=== PATIENT | male | born 1950 | race Caucasian/White ===

== ENCOUNTER 2016-10-12 08:49 | Outpatient (CLI) | payer MEDICARE, MEDICAID ==
[2016-10-12 09:39] LABS: EOSINOPHILS # (AUTO) 0.2 10^3/uL (0.0-0.7); EOSINOPHILS % (AUTO) 4.6 %; HCT - HEMATOCRIT 38.2 % (42.0-52.0); HGB - HEMOGLOBIN 13.3 g/dL (14.0-18.0); MEAN CORPUSCULAR HEMOGLOBIN 30.9 pg (27.0-31.0); MEAN CORPUSCULAR HGB CONC 34.8 g/dL (32.0-36.0); MEAN CORPUSCULAR VOLUME 88.7 fL (80.0-94.0); MEAN PLATELET VOLUME 9.4 fL (7.4-11.4); MONOCYTES # (AUTO) 0.5 10^3/uL (0.0-1.0); MONOCYTES % (AUTO) 13.1 %; NEUTROPHILS % (AUTO) 53.3 %; RED CELL DISTRIBUTION WIDTH 14.1 % (12.0-15.0); UNCORRECTED WHITE BLOOD COUNT 3.7 x10^3/uL; WHITE BLOOD COUNT 3.7 x10^3/uL (4.8-10.8)
[2016-10-12 09:46] LABS: BILIRUBIN,URINE NEGATIVE (NEGATIVE)
[2016-10-12 09:49] LABS: INR 1.1 (0.8-1.2); PT - PROTHROMBIN TIME 12.4 secs (9.9-12.6)
[2016-10-12 09:56] LABS: PARTIAL THROMBOPLASTIN TIME 25.7 secs (24.9-33.3)
[2016-10-12 10:04] LABS: ALBUMIN/GLOBULIN RATIO 0.8 (1.0-2.2); BILIRUBIN,TOTAL 0.8 mg/dL (0.2-1.0); CALCIUM 8.9 mg/dL (8.5-10.3); CREATININE 0.5 mg/dL (0.6-1.2); POTASSIUM 3.7 mmol/L (3.5-5.0); TOTAL PROTEIN 7.1 g/dL (6.7-8.2)
[2016-10-12 10:07] LABS: HEMOGLOBIN A1C 1.27 g/dL
[2016-10-14 21:15] LABS: LIVER KIDNEY MICROSOME AB <20.0 U (())
[2016-10-15 01:51] LABS: SMOOTH MUSCLE IGG AB <20 U (())
[2016-10-16 09:46] LABS: TEST RESULT REPORT (())
[2016-10-16 20:01] LABS: ANA SCREEN NEGATIVE (NEGATIVE)
== END 2016-10-12 08:50 | disposition home or self-care (01) ==
LOC: LAB 08:49
PROVIDERS: ATTEND Internal Medicine
DX: K74.60 Unspecified cirrhosis of liver (principal); E11.9 Type 2 diabetes mellitus without complications
CPT/HCPCS: 36415; 80053; 81003; 81599; 82105; 82728; 83036; 83516; 83540; 84466; 85025; 85610; 85730; 86038; 86255; 86376

== ENCOUNTER 2018-02-04 11:10 | Outpatient (CLI) | payer MEDICARE, MEDICAID ==
[2018-02-04 11:53] LABS: BILIRUBIN,URINE NEGATIVE (NEGATIVE); GLUCOSE, URINE (UA) >=1000 mg/dL (NEGATIVE); KETONES,URINE (UA) NEGATIVE (NEGATIVE); LEUKOCYTE ESTERASE, URINE NEGATIVE (NEGATIVE); NITRITE,URINE NEGATIVE (NEGATIVE); OCCULT BLOOD,URINE NEGATIVE (NEGATIVE); PROTEIN,URINE NEGATIVE (NEGATIVE); UROBILINOGEN,URINE 0.2 (NORMAL) E.U./dL (NORMAL)
[2018-02-04 11:55] LABS: CLARITY,URINE CLEAR (CLEAR)
[2018-02-04 11:59] LABS: BASOPHILS % (AUTO) 0.9 %; EOSINOPHILS # (AUTO) 0.2 10^3/uL (0.0-0.7); HGB - HEMOGLOBIN 11.8 g/dL (14.0-18.0); LYMPHOCYTES # (AUTO) 0.8 10^3/uL (1.5-3.5); LYMPHOCYTES % (AUTO) 26.3 %; MEAN CORPUSCULAR HEMOGLOBIN 25.3 pg (27.0-31.0); MEAN CORPUSCULAR HGB CONC 33.2 g/dL (32.0-36.0); MEAN CORPUSCULAR VOLUME 76.2 fL (80.0-94.0); MEAN PLATELET VOLUME 10.2 fL (7.4-11.4); MONOCYTES # (AUTO) 0.4 10^3/uL (0.0-1.0); MONOCYTES % (AUTO) 12.2 %; NEUTROPHILS # (AUTO) 1.7 10^3/uL (1.5-6.6); NEUTROPHILS % (AUTO) 53.6 %; PLT - PLATELET COUNT 59 10^3/uL (130-450); RED BLOOD COUNT 4.68 10^6/uL (4.70-6.10); RED CELL DISTRIBUTION WIDTH 16.3 % (12.0-15.0); WHITE BLOOD COUNT 3.1 x10^3/uL (4.8-10.8)
[2018-02-04 12:03] LABS: CREATININE,URINE 64.9 mg/dL; MICROALBUM/CREATININE RATIO,UR 112.5 ug/mg (<30.0); MICROALBUMIN,URINE 7.3 mg/dL (0-300.0)
[2018-02-04 12:13] LABS: HB2 TOTAL 12.7 g/dL; HEMOGLOBIN A1C 1.44 g/dL; HEMOGLOBIN A1C % 12.5 % (4.6-6.2)
[2018-02-04 12:23] LABS: ALBUMIN 3.5 g/dL (3.2-5.5); ALBUMIN/GLOBULIN RATIO 0.9 (1.0-2.2); ALKALINE PHOSPHATASE 56 IU/L (42-121); ALT ALANINE AMINOTRANSFERASE 65 IU/L (10-60); AST ASPARTATE AMINOTRANSFERASE 56 IU/L (10-42); BILIRUBIN,TOTAL 0.9 mg/dL (0.2-1.0); BUN - BLOOD UREA NITROGEN 11 mg/dL (6-20); CALCIUM 9.3 mg/dL (8.5-10.3); CARBON DIOXIDE - CO2 26 mmol/L (21-32); CHLORIDE 100 mmol/L (101-111); CHOLESTEROL 166 mg/dL; CREATININE 0.6 mg/dL (0.6-1.2); GFR - MDRD 135 (>89); GLUCOSE 271 mg/dL (70-100); HDL CHOLESTEROL 55 mg/dL; LDL CHOLESTEROL,CALCULATED 93 mg/dL; LDL/HDL RATIO 1.7 (<3.6); SODIUM 135 mmol/L (135-145); TOTAL PROTEIN 7.5 g/dL (6.7-8.2); VLDL CHOLESTEROL 18 mg/dL
[2018-02-04 12:28] LABS: THYROID STIMULATING HORMONE 0.98 uIU/mL (0.34-5.60)
== END 2018-02-04 11:11 | disposition home or self-care (01) ==
LOC: LAB 11:10
PROVIDERS: ATTEND Internal Medicine
DX: E11.9 Type 2 diabetes mellitus without complications (principal); Z79.899 Other long term (current) drug therapy; Z12.5 Encounter for screening for malignant neoplasm of prostate; I10 Essential (primary) hypertension; H91.90 Unspecified hearing loss, unspecified ear; I48.92 Unspecified atrial flutter; K21.9 Gastro-esophageal reflux disease without esophagitis; I85.00 Esophageal varices without bleeding; G64 Other disorders of peripheral nervous system; D69.6 Thrombocytopenia, unspecified; C67.9 Malignant neoplasm of bladder, unspecified; F32.9 Major depressive disorder, single episode, unspecified; F13.10 Sedative, hypnotic or anxiolytic abuse, uncomplicated; Z86.010 Personal history of colon polyps
CPT/HCPCS: 36415; 80053; 80061; 81003; 82043; 82570; 82607; 83036; 84443; 85025; G0103; 81001; 83721; 84153; 87086

== ENCOUNTER 2018-06-21 10:18 | Outpatient (CLI) | payer MEDICARE, MEDICAID ==
[2018-06-21 10:37] LABS: BILIRUBIN,URINE NEGATIVE (NEGATIVE); GLUCOSE, URINE (UA) >=1000 mg/dL (NEGATIVE); KETONES,URINE (UA) NEGATIVE (NEGATIVE); LEUKOCYTE ESTERASE, URINE NEGATIVE (NEGATIVE); NITRITE,URINE NEGATIVE (NEGATIVE); OCCULT BLOOD,URINE NEGATIVE (NEGATIVE); PROTEIN,URINE NEGATIVE (NEGATIVE); UROBILINOGEN,URINE 0.2 (NORMAL) E.U./dL (NORMAL)
[2018-06-21 10:41] LABS: CLARITY,URINE CLEAR (CLEAR)
[2018-06-21 10:52] LABS: ALBUMIN 3.5 g/dL (3.2-5.5); ALBUMIN/GLOBULIN RATIO 0.8 (1.0-2.2); BILIRUBIN,TOTAL 0.7 mg/dL (0.2-1.0); CALCIUM 8.9 mg/dL (8.5-10.3); CREATININE 0.7 mg/dL (0.6-1.2); TOTAL PROTEIN 7.9 g/dL (6.7-8.2)
[2018-06-21 11:12] LABS: BASOPHILS % (AUTO) 1.3 %; EOSINOPHILS # (AUTO) 0.2 10^3/uL (0.0-0.7); EOSINOPHILS % (AUTO) 4.6 %; HGB - HEMOGLOBIN 11.2 g/dL (14.0-18.0); LYMPHOCYTES # (AUTO) 1.1 10^3/uL (1.5-3.5); LYMPHOCYTES % (AUTO) 29.1 %; MEAN CORPUSCULAR HEMOGLOBIN 23.8 pg (27.0-31.0); MEAN CORPUSCULAR HGB CONC 32.6 g/dL (32.0-36.0); MEAN CORPUSCULAR VOLUME 72.8 fL (80.0-94.0); MEAN PLATELET VOLUME 9.7 fL (7.4-11.4); MONOCYTES # (AUTO) 0.5 10^3/uL (0.0-1.0); MONOCYTES % (AUTO) 14.1 %; NEUTROPHILS # (AUTO) 1.8 10^3/uL (1.5-6.6); NEUTROPHILS % (AUTO) 50.9 %; PLT - PLATELET COUNT 96 10^3/uL (130-450); RED BLOOD COUNT 4.72 10^6/uL (4.70-6.10); RED CELL DISTRIBUTION WIDTH 16.3 % (12.0-15.0); WHITE BLOOD COUNT 3.6 x10^3/uL (4.8-10.8)
[2018-06-21 11:18] LABS: HB2 TOTAL 12.2 g/dL; HEMOGLOBIN A1C 1.37 g/dL; HEMOGLOBIN A1C % 12.4 % (4.6-6.2)
== END 2018-06-21 10:19 | disposition home or self-care (01) ==
LOC: LAB 10:18
PROVIDERS: ATTEND Internal Medicine
DX: K74.60 Unspecified cirrhosis of liver (principal); I85.00 Esophageal varices without bleeding; R11.0 Nausea; D69.6 Thrombocytopenia, unspecified; E11.9 Type 2 diabetes mellitus without complications
CPT/HCPCS: 36415; 80053; 81001; 81003; 82150; 83036; 83690; 85025; 87086

== ENCOUNTER 2018-06-28 11:55 | Outpatient (CLI) | payer MEDICARE, MEDICAID ==
--- NOTE | 2018-06-28 13:01 | XRAY Report ---
Reason: COUGH,TROUBLE BREATHING Procedure Date: 06/28/2018 Accession Number: [id number] / [id number] Procedure: XR - Chest 2 View X-Ray CPT Code: 13682 FULL RESULT: EXAM: CHEST RADIOGRAPHY EXAM DATE: 06/28/2018 12:28 PM. CLINICAL HISTORY: Cough, trouble breathing. COMPARISON: None. TECHNIQUE: 2 views. FINDINGS: Lungs/Pleura: No focal opacities evident. No pleural effusion. No pneumothorax. Normal volumes. Mediastinum: Heart and mediastinal contours are unremarkable. Other: None. IMPRESSION: Normal 2-view chest radiography. [facility]
== END 2018-06-28 11:56 | disposition home or self-care (01) ==
LOC: DI 11:55
PROVIDERS: ATTEND Internal Medicine
DX: R05 Cough (principal); R06.00 Dyspnea, unspecified; B34.9 Viral infection, unspecified; R50.9 Fever, unspecified
CPT/HCPCS: 71046; 87275; 87276

== ENCOUNTER 2020-01-08 11:33 | Outpatient (CLI) | payer MEDICARE, MEDICAID ==
[2020-01-08 11:53] LABS: BILIRUBIN,URINE NEGATIVE (NEGATIVE); GLUCOSE, URINE (UA) >=1000 mg/dL (NEGATIVE); KETONES,URINE (UA) NEGATIVE (NEGATIVE); LEUKOCYTE ESTERASE, URINE SMALL (NEGATIVE); NITRITE,URINE NEGATIVE (NEGATIVE); OCCULT BLOOD,URINE TRACE-INTA (NEGATIVE); PH,URINE 7.5 PH (5.0-7.5); PROTEIN,URINE NEGATIVE (NEGATIVE); UROBILINOGEN,URINE 0.2 (NORMAL) E.U./dL (NORMAL)
[2020-01-08 11:55] LABS: CLARITY,URINE SL. CLOUDY (CLEAR)
[2020-01-08 12:20] LABS: BACTERIA,URINE Rare /HPF (None Seen); RBC,URINE 0-5 /HPF (0-5); SQUAMOUS EPITHELIAL CELL,UR NONE SEEN (<= Few); WBC CLUMPS,URINE PRESENT
[2020-01-08 12:50] LABS: HEMOGLOBIN A1c% 10.8 % (4.27-6.07)
== END 2020-01-08 11:34 | disposition home or self-care (01) ==
LOC: LAB 11:33
PROVIDERS: ATTEND Internal Medicine
DX: E11.9 Type 2 diabetes mellitus without complications (principal); R35.0 Frequency of micturition
CPT/HCPCS: 36415; 81001; 81003; 83036; 87086; 87181

== ENCOUNTER 2020-01-18 10:14 | Emergency (ER) | payer MEDICARE, MEDICAID ==
--- NOTE | 2020-01-18 10:48 | ED Physician Documentation ---
PD HPI MALE - Stated complaint Stated Complaint: MALE - Chief complaint Chief Complaint: General - History obtained from History obtained from: Patient - History of Present Illness Timing - onset: How many weeks ago (4-5 weeks of difficulty urinating with hesitancy and having to "force urine out", with the symptoms worsening the past week particularly. Has pain with urine output, and only small trickle at a time.) Timing - duration: Weeks Timing - details: Gradual onset, Still present Associated symptoms: Urinary frequency, Unable to urinate (does not feel complete emptying.). No: Dysuria, Genital sore / lesion, Scrotal swelling, Abdominal pain Similar symptoms before: Has not had sx before Review of Systems Constitutional: denies: Fever, Chills Nose: denies: Rhinorrhea / runny nose, Congestion Throat: denies: Sore throat Respiratory: denies: Cough : reports: Frequency, Hesitancy, Unable to Void (only small amounts at a time and hurts when he does.). denies: Hematuria, Discharge PD PAST MEDICAL HISTORY - Past Medical History Cardiovascular: None Endocrine/Autoimmune: Type 2 diabetes GI: Hepatitis, Cirrhosis, Other : Kidney stones Psych: Depression Musculoskeletal: Chronic back pain Derm: None - Past Surgical History General: Colonoscopy, EGD Cardiovascular: Cardiac catheterization HEENT: Tonsil/Adenoidectomy - Present Medications Home Medications: Ambulatory Orders Medication Instructions Recorded Confirmed Cannabis 1 drop ORAL QPM 02/10/15 01/18/20 Docusate Sodium 100 mg PO DAILY #20 capsule 01/18/20 Doxycycline Monohydrate 100 mg PO BID #14 tablet 01/18/20 Linagliptin [Tradjenta] 5 mg PO DAILY 01/18/20 01/18/20 Lisinopril [Zestril] 2.5 mg PO DAILY 01/18/20 01/18/20 Melatonin 5 mg PO DAILY PM PRN 01/18/20 01/18/20 Omeprazole 40 mg PO DAILY 01/18/20 01/18/20 Propranolol HCl 20 mg PO DAILY 01/18/20 01/18/20 Tamsulosin [Flomax] 0.4 mg PO DAILY #5 capsule 01/18/20 Venlafaxine ER [Effexor ER] 150 mg PO DAILY 01/18/20 01/18/20 - Allergies Allergies/Adverse Reactions: Allergies Allergy/AdvReac Type Severity Reaction Status Date / Time chlorthenoxazine Allergy Respiratory Verified 01/18/20 10:31 diphenhydramine HCl * Allergy Unknown Verified 01/18/20 10:31 [From Benadryl] ephedrine HCl * [From Tedral] Allergy Respiratory Verified 01/18/20 10:31 Penicillins Allergy Diaphoresis Verified 01/18/20 10:31 phenobarbital [From Tedral] Allergy Unknown Verified 01/18/20 10:31 quinine Allergy Itching Verified 01/18/20 10:31 theophylline [From Tedral] Allergy Unknown Verified 01/18/20 10:31 - Social History Does the pt smoke?: No Smoking Status: Never smoker Does the pt drink ETOH?: Yes Does the pt have substance abuse?: No - POLST Patient has POLST: No PD ED PE NORMAL - Vitals Vital signs reviewed: Yes - General General: Alert and oriented X 3, No acute distress, Well developed/nourished - HEENT HEENT: Pharynx benign - Neck Neck: Supple, no meningeal sign, No adenopathy - Cardiac Cardiac: RRR, No murmur - Respiratory Respiratory: Clear bilaterally - Abdomen Abdomen: Normal bowel sounds, Soft, Non tender, No organomegaly, Other (some fullness in suprapubic area. ) - Male Male : Other (normal genitalia. ) - Rectal Rectal: Other (Prostate does not feel particularly enlarged. ) - Back Back: No CVA TTP - Derm Derm: Normal color, Warm and dry - Extremities Extremities: Normal ROM s pain, No edema, No calf tenderness / cord - Neuro Neuro: Alert and oriented X 3, No motor deficit, Normal speech Results - Vitals Vitals: Vital Signs - 24 hr 01/18/20 01/18/20 01/18/20 10:27 11:40 12:52 Temperature 36.6 C 37 C Heart Rate 105 H 104 H 100 Respiratory 20 26 H 16 Rate Blood Pressure 145/79 H 127/74 135/77 H O2 Saturation 99 100 100 01/18/20 13:43 Temperature 37 C Heart Rate 91 Respiratory 16 Rate Blood Pressure 144/76 H O2 Saturation 98 Oxygen O2 Source Room air - Labs Labs: Laboratory Tests 01/18/20 10:40 Urine Color YELLOW Urine Clarity HAZY Urine pH 7.5 Ur Specific [place] 1.015 Urine Protein NEGATIVE Urine Glucose (UA) 100 H Urine Ketones NEGATIVE Urine Occult Blood TRACE-INTA Urine Nitrite NEGATIVE Urine Bilirubin NEGATIVE Urine Urobilinogen 0.2 (NORMAL) Ur Leukocyte Esterase MODERATE H Urine RBC 6-10 H Urine WBC 11-25 H Ur Squamous Epith Cells NONE SEEN Urine Bacteria Rare Ur Microscopic Review INDICATED Urine Culture Comments INDICATED PD MEDICAL DECISION MAKING - ED course Complexity details: reviewed results, considered differential (having painful frequent urine output with small amounts at a time. Post void residual here is 455. Some suggestion of UTI on UA. Prostate does not feel enlarged. ), d/w patient Departure - Departure Disposition: Home, Self Care Clinical Impression: Acute urinary retention UTI (urinary tract infection) Qualifiers: Urinary tract infection type: acute cystitis Hematuria presence: without hematuria Qualified Code(s): N30.00 - Acute cystitis without hematuria Condition: Stable Record reviewed to determine appropriate education?: Yes Instructions: ED Catheter Care Remy, ED Retention Urinary Male Follow-Up: Marina Mock MD [Primary Care Provider] - Des Holloway MD [Provider Admit Priv/Credential] - Prescriptions: Docusate Sodium 100 mg PO DAILY #20 capsule Doxycycline Monohydrate 100 mg PO BID #14 tablet Tamsulosin [Flomax] 0.4 mg PO DAILY #5 capsule Comments: He did have a lot of urine remaining after you urinated and that is likely accounting for a lot of the discomfort. The catheter should allow proper drainage while we are treating for presumed infection of the bladder/prostate and also likely prostate enlargement. Antibiotics as directed twice daily for a week. Tamsulosin to help decrease prostate enlargement. Use a daily stool softener to ensure you are going well. Remy catheter care as described by nursing and the instructions. Follow-up with urology towards the end of this week, call Sunday for an appointment. Return if worsening problems develop. Discharge Date/Time: 01/18/20 14:38
[2020-01-18 10:51] LABS: BILIRUBIN,URINE NEGATIVE (NEGATIVE); GLUCOSE, URINE (UA) 100 mg/dL (NEGATIVE); KETONES,URINE (UA) NEGATIVE (NEGATIVE); LEUKOCYTE ESTERASE, URINE MODERATE (NEGATIVE); NITRITE,URINE NEGATIVE (NEGATIVE); OCCULT BLOOD,URINE TRACE-INTA (NEGATIVE); PH,URINE 7.5 PH (5.0-7.5); PROTEIN,URINE NEGATIVE (NEGATIVE); UROBILINOGEN,URINE 0.2 (NORMAL) E.U./dL (NORMAL)
[2020-01-18 10:54] LABS: CLARITY,URINE HAZY (CLEAR)
[2020-01-18 11:00] LABS: BACTERIA,URINE Rare /HPF (None Seen); SQUAMOUS EPITHELIAL CELL,UR NONE SEEN (<= Few)
[2020-01-18] MEDS ORDERED: LIDOCAINE 2% URO-JET 5 ML SYRINGE UR STA (12:16)
[2020-01-18] MEDS ORDERED: KETOROLAC 30 MG/ML VIAL IM STA (13:04)
[2020-01-18] MEDS ORDERED: HYDROcod/ACETAM 5/325 MG TABLET PO STA (13:04)
[2020-01-18] MEDS ORDERED: DOXYCYCLINE 100 MG TABLET PO STA (13:28)
[2020-01-18 13:44] VITALS: BP 144/76
== END 2020-01-18 14:38 | disposition home or self-care (01) ==
LOC: ED 10:14
DX: R33.9 Retention of urine, unspecified (principal); N30.00 Acute cystitis without hematuria; E11.9 Type 2 diabetes mellitus without complications
CPT/HCPCS: 51702; 51798; 81001; 87077; 87086; 87181; 96372; 99284; A9270; 81003

== ENCOUNTER 2020-01-27 09:50 | Emergency (ER) | payer MEDICARE, MEDICAID ==
--- NOTE | 2020-01-27 10:32 | ED Physician Documentation ---
PD HPI MALE - Stated complaint Stated Complaint: CATHETER ISSUE - Chief complaint Chief Complaint: General - History obtained from History obtained from: Patient - History of Present Illness Timing - onset: Today, Last night Timing - duration: Days (1/2) Timing - details: Abrupt onset (onset last night of less drainage out of warren and has feeling full bladder this morning. Has had the catheter just short term (week or so), and was due to have it removed when sees Urology on 02 February (in a week). He would prefer to just get it out now.), Still present Associated symptoms: Warren problem (not draining) PD HPI MALE CONTRIB FACTORS: Indwelling catheter (shoert term for recent acute urinary retention) Similar symptoms before: Has not had sx before Recently seen: Emergency Dept Review of Systems Constitutional: denies: Fever, Chills Nose: denies: Rhinorrhea / runny nose, Congestion Throat: denies: Sore throat Respiratory: denies: Cough GI: denies: Nausea, Vomiting, Diarrhea PD PAST MEDICAL HISTORY - Past Medical History Cardiovascular: None Respiratory: None Neuro: None Endocrine/Autoimmune: Type 2 diabetes GI: Hepatitis, Cirrhosis, Other : Kidney stones HEENT: Chronic hearing loss Psych: Depression Musculoskeletal: Chronic back pain Derm: None - Past Surgical History Past Surgical History: Yes General: Colonoscopy, EGD Cardiovascular: Cardiac catheterization HEENT: Tonsil/Adenoidectomy - Present Medications Home Medications: Ambulatory Orders Medication Instructions Recorded Confirmed Cannabis 1 drop ORAL QPM 02/10/15 01/18/20 Docusate Sodium 100 mg PO DAILY #20 capsule 01/18/20 Doxycycline Monohydrate 100 mg PO BID #14 tablet 01/18/20 Linagliptin [Tradjenta] 5 mg PO DAILY 01/18/20 01/18/20 Lisinopril [Zestril] 2.5 mg PO DAILY 01/18/20 01/18/20 Melatonin 5 mg PO DAILY PM PRN 01/18/20 01/18/20 Omeprazole 40 mg PO DAILY 01/18/20 01/18/20 Propranolol HCl 20 mg PO DAILY 01/18/20 01/18/20 Tamsulosin [Flomax] 0.4 mg PO DAILY #5 capsule 01/18/20 Venlafaxine ER [Effexor ER] 150 mg PO DAILY 01/18/20 01/18/20 - Allergies Allergies/Adverse Reactions: Allergies Allergy/AdvReac Type Severity Reaction Status Date / Time chlorthenoxazine Allergy Respiratory Verified 01/27/20 10:07 diphenhydramine HCl * Allergy Unknown Verified 01/27/20 10:07 [From Benadryl] ephedrine HCl * [From Tedral] Allergy Respiratory Verified 01/27/20 10:07 Penicillins Allergy Diaphoresis Verified 01/27/20 10:07 phenobarbital [From Tedral] Allergy Unknown Verified 01/27/20 10:07 quinine Allergy Itching Verified 01/27/20 10:07 theophylline [From Tedral] Allergy Unknown Verified 01/27/20 10:07 - Social History Does the pt smoke?: No Smoking Status: Never smoker Does the pt drink ETOH?: Yes Does the pt have substance abuse?: No - Immunizations Immunizations are current?: No Immunizations: TDAP >10years/unknown, Other immun not current - POLST Patient has POLST: No PD ED PE NORMAL - Vitals Vital signs reviewed: Yes - General General: Alert and oriented X 3, No acute distress, Well developed/nourished - Cardiac Cardiac: RRR, No murmur - Respiratory Respiratory: Clear bilaterally - Abdomen Abdomen: Normal bowel sounds, Soft, Non distended, No organomegaly, Other (tender with fullness in suprapubic area. Warren in place and not seeming to drain much. No discharge. Urine that is present in tubing/bag appears clear. ) Results - Vitals Vitals: Vital Signs - 24 hr 01/27/20 01/27/20 10:07 12:23 Temperature 36.7 C 36.9 C Heart Rate 94 93 Respiratory 18 16 Rate Blood Pressure 128/67 132/78 H O2 Saturation 98 99 Oxygen O2 Source Room air PD MEDICAL DECISION MAKING - ED course Complexity details: considered differential (bladder scanner showed 300 ml. Warren irrigated by nursing and urine came out. Not briskly. So warren removed at pt request (shared decision as it is not unreasonable to give voiding trial at this point, since done with abx for recent infection). ), d/w patient Departure - Departure Disposition: 01 Home, Self Care Clinical Impression: Complication, blocked Warren catheter Qualifiers: Encounter type: initial encounter Qualified Code(s): T83.091A - Other mechanical complication of indwelling urethral catheter, initial encounter Condition: Stable Record reviewed to determine appropriate education?: Yes Follow-Up: Marina Mock MD [Primary Care Provider] - Comments: Continue usual medications. Follow-up with urology on the as scheduled. Return to the ER if unable to urinate later today or tomorrow or anytime in between now and next week. Anticipate small amounts of urine and dribbling as your main output today and tomorrow. Recheck if unable to urinate well enough and you feel that your bladder is getting too full. Discharge Date/Time: 01/27/20 12:24
[2020-01-27 12:24] VITALS: BP 132/78
== END 2020-01-27 12:24 | disposition home or self-care (01) ==
LOC: ED 09:50
DX: T83.091A Other mechanical complication of indwelling urethral catheter, initial encounter (principal); Y84.6 Urinary catheterization as the cause of abnormal reaction of the patient, or of later complication, without mention of misadventure at the time of the procedure; E11.9 Type 2 diabetes mellitus without complications
CPT/HCPCS: 51798; 99281; 99283

== ENCOUNTER 2020-02-04 09:54 | Outpatient (CLI) | payer MEDICARE, MEDICAID | END 2020-02-04 09:55 | disposition home or self-care (01) | LOC: LAB 09:54 | PROVIDERS: ATTEND Internal Medicine | DX: Z20.828 Contact with and (suspected) exposure to other viral communicable diseases (principal) ==

== ENCOUNTER 2020-06-11 15:11 | Outpatient (CLI) | payer MEDICARE, MEDICAID ==
--- NOTE | 2020-06-11 16:53 | Ultrasound Report ---
PROCEDURE: Testicle INDICATIONS: LT TESTICLE PAIN TECHNIQUE: Real-time scanning was performed of the scrotum and testicles, with image documentation. Color and p ulse Doppler interrogation was performed of both testicles. COMPARISON: None. FINDINGS: Right: Testicle is normal in size at 3.3 x 1.9 x 2.4 cm, and homogenous in echotexture. Epididymal c ystic lesion measuring 3 x 3 x 4 mm.. Right hydrocele. There is a varicoceles. Overlying scrotal ski n is normal in thickness. Left: Testicle is normal in size at 3.7 x 1.6 x 2.2 cm, and homogeneous in echotexture. Epididymis is normal in overall size and morphology. No hydrocele. There is a varicocele. Overlying scrotal sk in is normal in thickness. Doppler: Color and pulse Doppler demonstrate normal and symmetric arterial flow in both testicles. IMPRESSION: Right epididymal cyst/spermatocele. Small right hydrocele Bilateral varicocele, left greater the right Reviewed by: Juan Ramon Ornelas MD on 06/11/2020 4:52 PM PST Approved by: Juan Ramon Ornelas MD on 06/11/2020 4:52 PM PST Station ID: [id number]
== END 2020-06-11 15:12 | disposition home or self-care (01) ==
LOC: DI 15:11
PROVIDERS: ATTEND Internal Medicine
DX: N50.3 Cyst of epididymis (principal)

== ENCOUNTER 2020-09-01 08:15 | Outpatient (CLI) | payer MEDICARE, MEDICAID ==
--- NOTE | 2020-09-01 10:23 | Ultrasound Report ---
PROCEDURE: Abdomen Complete INDICATIONS: CIRRHOSIS TECHNIQUE: Real-time scanning was performed of the abdominal and retroperitoneal organs, with image documentatio n. COMPARISON: None. FINDINGS: Liver: Liver is normal in size. Mildly coarse liver parenchymal echotexture is seen. No discrete hep atic lesion is noted. Gallbladder: There is no gallstone. No gallbladder wall thickening or pericholecystic fluid. No sonog raphic Bautista's sign. Biliary ducts: Intrahepatic bile ducts are non-dilated. Extrahepatic bile duct caliber measures 4.6 mm. Normal is 6-7 mm or less in diameter, or 10 mm or less post-cholecystectomy. Pancreas: Visualized portions of the pancreas are sonographically normal. Spleen: Spleen is enlarged and measures 15.7 x 10.8 x 14.9 cm in size. Kidneys: Kidneys are normal in size and echotexture. Right kidney measures 12.3 cm long; left kidne y measures 13.2 cm long. No hydronephrosis or nephrolithiasis. No solid masses. Aorta: Visualized aorta is normal in caliber at less than 3 cm. Iliacs: Proximal common iliac arteries are normal in caliber at less than 2.5 cm. IVC: Intrahepatic inferior vena cava is patent. Miscellaneous: No free abdominal fluid. IMPRESSION: 1. Normal liver size with coarse liver parenchymal echotexture. No discrete hepatic lesion. Finding i s suggestive of hepatocellular disease. 2. Mild splenomegaly. No discrete splenic lesion. 3. Rest of the exam is within normal limits. Reviewed by: Samuel Garcia MD on 09/01/2020 10:22 AM PDT Approved by: Samuel Garcia MD on 09/01/2020 10:22 AM PDT Station ID: [id number]
== END 2020-09-01 08:16 | disposition home or self-care (01) ==
LOC: DI 08:15
PROVIDERS: ATTEND Physician Assistant
DX: K74.60 Unspecified cirrhosis of liver (principal); R16.1 Splenomegaly, not elsewhere classified

== ENCOUNTER 2020-12-09 15:25 | Outpatient (CLI) | payer MEDICARE, MEDICAID | END 2020-12-09 23:59 | disposition EMS.NT | LOC: EMS 15:25 | DX: R53.1 Weakness (principal) ==